=== PATIENT | female | born 1995 | race Hispanic/Latino ===

== ENCOUNTER 2018-06-10 13:10 | Emergency (ER) | payer OTHER | END 2018-06-10 13:47 | disposition home or self-care (01) | LOC: EDH 13:10 | DX: Z02.89 Encounter for other administrative examinations (principal) ==

== ENCOUNTER 2018-06-10 14:57 | Emergency (ER) | payer OTHER | END 2018-06-10 16:26 | disposition home or self-care (01) | LOC: EDH 14:57 | DX: O26.891 Other specified pregnancy related conditions, first trimester (principal); R10.2 Pelvic and perineal pain; Z32.01 Encounter for pregnancy test, result positive; Z3A.09 9 weeks gestation of pregnancy | CPT/HCPCS: 76801; 81025 ==

== ENCOUNTER 2019-01-30 13:07 | Emergency (ER) | payer MEDICAID | END 2019-01-30 15:03 | disposition home or self-care (01) | LOC: EDH 13:07 | DX: Z32.02 Encounter for pregnancy test, result negative (principal) | CPT/HCPCS: 36415; 84702 ==

== ENCOUNTER 2019-12-29 04:42 | Emergency (ER) | payer MEDICAID ==
[2019-12-29 05:13] LABS: APPEARANCE,URINE Clear (CLEAR); BILIRUBIN,URINE Negative (NEGATIVE); COLOR,URINE Yellow (YELLOW); GLUCOSE, URINE (UA) Negative (NEGATIVE); KETONES,URINE >=80 mg/dL (NEGATIVE); LEUKOCYTE ESTERASE ,URINE Trace (NEGATIVE); NITRATE,URINE Negative (NEGATIVE); OCCULT BLOOD,URINE Negative (NEGATIVE); PH,URINE 5.5 (5.0-8.0); PROTEIN,URINE Negative (NEGATIVE)
[2019-12-29 05:15] LABS: BASOPHILS % (AUTO) 0.6 % (0.0-5.0); EOSINOPHILS % (AUTO) 1.8 % (0.0-8.0); HEMATOCRIT 36.4 % (36-48); LYMPHOCYTES % (AUTO) 26.1 % (21.0-51.0); MEAN CORPUSCULAR HEMOGLOBIN 31.8 pg (27.0-33.0); MEAN CORPUSCULAR HGB CONC 33.8 g/dL (32.0-36.0); MEAN CORPUSCULAR VOLUME 94.1 fL (79-99); MONOCYTES % (AUTO) 7.5 % (3.0-13.0); NEUTROPHILS % (AUTO) 63.8 % (40.0-77.0); PLATELET COUNT (AUTO) 230 K/uL (130-400); RED BLOOD CELL COUNT(AUTO) 3.87 MIL/uL (4.00-5.50); RED CELL DISTRIBUTION WIDTH 13.4 % (11.0-15.5); WHITE BLOOD COUNT (AUTO) 9.1 K/uL (4.8-10.8)
[2019-12-29 05:19] LABS: AMPHET/METH SCREEN,URINE NEGATIVE (NEGATIVE); BARBITURATE SCREEN, URINE NEGATIVE (NEGATIVE); BENZODIAZEPINES SCREEN,URINE NEGATIVE (NEGATIVE); CANNABINOID SCREEN,URINE NEGATIVE (NEGATIVE); COCAINE SCREEN,URINE NEGATIVE (NEGATIVE); HCG,QUAL RESULT NEGATIVE (NEGATIVE); OPIATE SCREEN,URINE NEGATIVE (NEGATIVE); PHENCYCLIDINE SCREEN,URINE NEGATIVE (NEGATIVE)
[2019-12-29 05:24] LABS: BACTERIA,URINE None Seen /HPF (None Seen); MUCUS,URINE Few LPF (None Seen); RBC,URINE None Seen /HPF (0-1); SQUAMOUS EPITHELIAL CELL,UR Few /HPF (0-2)
[2019-12-29 05:32] LABS: ACETAMINOPHEN < 1 mcg/mL (10-30); SALICYLATE < 2.8 mg/dL (2.8-20.0)
[2019-12-29 05:33] LABS: ALBUMIN 4.1 g/dL (3.5-5.0); ALCOHOL, BLOOD < 3 mg/dL (0-10); BILIRUBIN,TOTAL 0.7 mg/dL (0.2-1.0); CREATININE 0.7 mg/dL (0.5-1.5); POTASSIUM 3.1 mmol/L (3.5-5.1); TOTAL PROTEIN, SERUM 7.5 g/dL (6.0-8.3)
== END 2019-12-29 09:15 | disposition home or self-care (01) ==
LOC: EDH 04:42
DX: F31.9 Bipolar disorder, unspecified (principal); F41.9 Anxiety disorder, unspecified; Z98.890 Other specified postprocedural states; Z72.0 Tobacco use
CPT/HCPCS: 36415; 80053; 80305; 81001; 81025; 85025; 99283; G0481

== ENCOUNTER 2022-08-31 03:00 | Emergency (ER) | payer MEDICAID ==
[~2022-08-31] VITALS: Ht 160 cm; Wt 77.1 kg
[2022-08-31 03:49] LABS: BASOPHILS % (AUTO) 0.3 % (0.0-5.0); EOSINOPHILS % (AUTO) 0.5 % (0.0-8.0); HEMATOCRIT 36.6 % (36-48); LYMPHOCYTES % (AUTO) 13.1 % (21.0-51.0); MEAN CORPUSCULAR HEMOGLOBIN 32.4 pg (27.0-33.0); MEAN CORPUSCULAR HGB CONC 34.4 g/dL (32.0-36.0); MEAN CORPUSCULAR VOLUME 94.1 fL (79-99); MONOCYTES % (AUTO) 4.9 % (3.0-13.0); NEUTROPHILS % (AUTO) 80.8 % (40.0-77.0); PLATELET COUNT (AUTO) 251 K/uL (130-400); RED BLOOD CELL COUNT(AUTO) 3.89 MIL/uL (4.00-5.50); RED CELL DISTRIBUTION WIDTH 14.1 % (11.0-15.5); WHITE BLOOD COUNT (AUTO) 10.6 K/uL (4.8-10.8)
[2022-08-31 04:00] LABS: APPEARANCE,URINE CLOUDY (CLEAR); BILIRUBIN,URINE NEGATIVE (NEGATIVE); COLOR,URINE YELLOW (YELLOW); GLUCOSE, URINE (UA) NEGATIVE (NEGATIVE); KETONES,URINE 5 mg/dL (NEGATIVE); LEUKOCYTE ESTERASE ,URINE 250 Leu/uL (NEGATIVE); NITRATE,URINE NEGATIVE (NEGATIVE); OCCULT BLOOD,URINE NEGATIVE (NEGATIVE); PH,URINE 6.5 (5.0-8.0); PROTEIN,URINE 10 mg/dL (NEGATIVE); UROBILINOGEN,URINE 0.2 mg/dL (0.2-1.0)
[2022-08-31 04:12] LABS: AMPHET/METH SCREEN,URINE NEGATIVE (NEGATIVE); BARBITURATE SCREEN, URINE NEGATIVE (NEGATIVE); BENZODIAZEPINES SCREEN,URINE NEGATIVE (NEGATIVE); CANNABINOID SCREEN,URINE NEGATIVE (NEGATIVE); COCAINE SCREEN,URINE NEGATIVE (NEGATIVE); OPIATE SCREEN,URINE NEGATIVE (NEGATIVE); PHENCYCLIDINE SCREEN,URINE NEGATIVE (NEGATIVE)
[2022-08-31 04:14] LABS: MUCUS,URINE MOD LPF (None Seen); SQUAMOUS EPITHELIAL CELL,UR FEW /HPF (0-2)
[2022-08-31 04:35] LABS: ALANINE AMINOTRANSFERASE 21 U/L (12-78); ALBUMIN 2.9 g/dL (3.5-5.0); ASPARTATE AMINOTRANSFERASE 18 U/L (10-37); CARBON DIOXIDE 29 mmol/L (21-32); CHLORIDE 102 mmol/L (101-111); CREATININE 0.4 mg/dL (0.5-1.5); GLOMERULAR FILTR. RATE CALC 140 mL/min (>90); GLUCOSE,RANDOM 102 mg/dL (70-105); HCG,QUANTITATIVE 30233 mIU/mL (0-5); SODIUM SERUM 137 mmol/L (136-145); TOTAL PROTEIN, SERUM 6.6 g/dL (6.0-8.3); UREA NITROGEN, BLOOD 3 mg/dL (7-18)
[2022-08-31 04:43] LABS: ACETAMINOPHEN < 1 mcg/mL (10-30); SALICYLATE < 2.8 mg/dL (2.8-20.0)
[2022-08-31 04:44] LABS: POTASSIUM 2.5 mmol/L (3.5-5.1)
[2022-08-31] MEDS ORDERED: POTASSIUM BICARB/CIT AC 25 MEQ TABLET.EFF PO ONE (05:00)
[2022-08-31 05:31] VITALS: BP 125/57
[2022-09-03] MEDS ORDERED: OMEP40CA21 PO (14:41)
[2022-09-03] MEDS ORDERED: VENL150T3 PO (14:41)
[2022-09-03] MEDS ORDERED: HYDR-3422 PO (14:41)
[2022-09-03] MEDS ORDERED: OMEG-148 PO (14:41)
== END 2022-08-31 05:48 | disposition home or self-care (01) ==
LOC: EDH 03:00
DX: O99.341 Other mental disorders complicating pregnancy, first trimester (principal); F31.9 Bipolar disorder, unspecified; I10 Essential (primary) hypertension; F20.9 Schizophrenia, unspecified; Z3A.09 9 weeks gestation of pregnancy
CPT/HCPCS: 99284; 76805; 80053; 80305; 84703; 84702; 85025; 87088; 36415; 81001; G0481

== ENCOUNTER 2024-10-01 18:31 | Emergency (ER) | payer MEDICAID ==
[~2024-10-01] VITALS: Ht 162.6 cm; Wt 79.4 kg
[~2024-10-01 18:31] MED LIST: OMEG-148 PO; OMEP40CA21 PO
[2024-10-01 18:34] VITALS: TEMP 98.6
--- NOTE | 2024-10-01 18:37 | ERN ---
ED Note History of Present Illness Stated Complaint: VOMITING Chief Complaint: Nausea,Vomiting,Diarrhea Time Seen by MD: 18:31 Dictation: PATIENT IS A 28-YEAR-OLD FEMALE COMING IN TODAY WITH COMPLAINTS OF RIGHT UPPER QUADRANT PAIN NAUSEA VOMITING AFTER INGESTING DRUGS TO INCLUDE SYNTHETIC MARIJUANA ALCOHOL. SHE STATES THE LAST INGESTION OF ANY CHEMICALS WAS THREE DAYS AGO WHEN A FRIEND SLEPT SOME IN HER CIGARETTE. Allergies: Coded Allergies: risperidone (Unverified Allergy, Severe, DIFFICULTY BREATHING, 09/04/22) No Known Allergies (Unverified Allergy, Unknown, 01/30/19) Home Meds Reported Medications Davy-3S/Dha/Epa/Fish Oil (Fish Oil 1,000 mg Softgel) 1 Each Capsule, 1 EACH PO AM, CAP 09/03/22 Omeprazole (Omeprazole) 40 Mg Capsule.dr, 40 MG PO AM, CAP 09/03/22 Past Medical History Past Medical History: Bipolar, Diabetes-Type II, Schizophrenia Surgical History: Unknown Family History: Negative Social History: Negative, Lives with family : 2 Para: 1 RN Note Reviewed/Agreed w/PFSH: Yes Review of System Dictation CONSTITUTIONAL: NEGATIVE EXCEPT FOR HPI HEAD/FACE: NEGATIVE EXCEPT FOR HPI EENT: NEGATIVE EXCEPT FOR HPI RESPIRATORY: NEGATIVE EXCEPT FOR HPI GASTROINTESTINAL/ABDOMINAL: NEGATIVE EXCEPT FOR HPI RIG PAIN WITH NAUSEA AND VOMITING GENITOURINARY: NEGATIVE EXCEPT FOR HPI MUSCULOSKELETAL: NEGATIVE EXCEPT FOR HPI INTEGUMENTARY: NEGATIVE EXCEPT FOR HPI NEUROLOGICAL/PSYCH: NEGATIVE EXCEPT FOR HPI HEMATOLOGIC/LYMPHATIC: NEGATIVE EXCEPT FOR HPI ALL SYSTEMS NEGATIVE, EXCEPT NOTED ABOVE. 13 POINT REVIEW OF SYSTEMS ASSESSED AND ALL NEGATIVE EXCEPT FOR ABOVE. Initial Vital Sign VS Vital Signs Date Time Temp Pulse Resp B/P (MAP) Pulse Ox O2 Delivery O2 Flow Rate FiO2 10/01/24 18:34 98.6 107 18 97/61 100 Room Air 0 10/01/24 19:17 21 Physical Exam Dictation VITAL SIGNS REVIEWED GENERAL APPEARANCE: ALERT, ORIENTED X 3, NO ACUTE DISTRESS, WELL DEVELOPED, NOURISHED. OBESE HEAD AND FACE: NON-TRAUMATIC. EYES: PERRL, PINK CONJUNCTIVAS, EYELID NO TRAUMA, ANTERIOR CHAMBER WITH ARCUS SENILIS. EARS: PINNAS INTACT AND NO SIGNS OF TRAUMA OR ERYTHEMA EAR CANALS CLEAR AND NO DISCHARGE TM NO ERYTHEMA NOSE: NO DISCHARGE, NO BLEEDING. OROPHARYNX: MOUTH NORMAL, TONGUE PINK, PHARYNX CLEAR,NO ERYTHEMA, TONSILS NO EXUDATES, NO ABSCESSES NOTED, MUCOUS MEMBRANE MOIST NECK: SUPPLE, NON-TENDER, NO THYROMEGALY, NO MASSES, NO JVD, NO BRUITS BREAST:DEFERRED CHEST:NO TENDERNESS, NO CREPITUS, NO PARADOXICAL MOVEMENT, NO RETRACTIONS LUNGS:CLEAR, WELL-VENTILATED, SYMMETRIC, NO RALES, NO WHEEZING, NO RHONCHI, NO STRIDOR, GOOD BREATH SOUNDS BILATERALLY HEART: REGULAR RATE, REGULAR RHYTHM, NO MURMUR, NO GALLOPS VASCULAR: NO PERIPHERAL EDEMA, ABDOMEN: SOFT, POSITIVE BOWEL SOUNDS, NONDISTENDED, NO GUARDING, RIGHT UPPER QUADRANT PAIN TENDERNESS., NO REBOUND, NO MASSES NO HEPATOMEGALY, NO SPLENOMEGALY, NO MAURER'S SIGN, NO HERNIAS. RECTAL: DEFERRED GENITAL: DEFERRED NEUROLOGICAL: NORMAL SPEECH, MOTOR FUNCTION INTACT, SENSORY FUNCTION INTACT MUSCULOSKELETAL: NECK NONTENDER, FULL RANGE OF MOTION, BACK NONTENDER, FULL RANGE OF MOTION, EXTREMITIES: NONTENDER, FULL RANGE OF MOTION SKIN: COLOR PINK, DRY, NO TURGOR, NO RASH, NO LACERATIONS, NO ABRASIONS, NO CONTUSIONS. LYMPHATIC: DEFERRED Results (Laboratory/Radiology) Laboratory/Radiology Laboratory Tests Test 10/01/24 19:05 10/01/24 19:36 10/01/24 20:39 White Blood Count 9.2 K/uL (4.8-10.8) Red Blood Count 3.72 MIL/uL (4.00-5.50) L Hemoglobin 11.5 g/dL (12.0-16.0) L Hematocrit 34.4 % (36-48) L Mean Corpuscular Volume 92.5 fL (79-99) Mean Corpuscular Hemoglobin 30.9 pg (27.0-33.0) Mean Corpuscular Hemoglobin Concent 33.4 g/dL (32.0-36.0) Red Cell Distribution Width 13.4 % (11.0-15.5) Platelet Count 224 K/uL (130-400) Mean Platelet Volume 10.8 fL (7.5-10.5) H Immature Granulocyte % (Auto) 0.3 % (0-1) Neutrophils (%) (Auto) 63.5 % (40.0-77.0) Lymphocytes (%) (Auto) 26.4 % (21.0-51.0) Monocytes (%) (Auto) 8.5 % (3.0-13.0) Eosinophils (%) (Auto) 0.8 % (0.0-8.0) Basophils (%) (Auto) 0.5 % (0.0-5.0) Neutrophils # (Auto) 5.8 K/uL (1.8-7.7) Lymphocytes # (Auto) 2.4 K/uL (1.0-4.8) Monocytes # (Auto) 0.8 K/uL (0.1-1.0) Eosinophils # (Auto) 0.07 K/uL (0.00-0.70) Basophils # (Auto) 0.05 K/uL (0.00-0.20) Absolute Immature Granulocyte (auto 0.03 K/uL (0-1) Nucleated Red Blood Cells 0.0 % (0.0-0.19) Sodium Level 137 mmol/L (136-145) Potassium Level 3.8 mmol/L (3.5-5.1) Chloride Level 101 mmol/L (101-111) Carbon Dioxide Level 27 mmol/L (21-32) Blood Urea Nitrogen 10 mg/dL (7-18) Creatinine 0.7 mg/dL (0.5-1.0) Glomerular Filtration Rate Calc 121 mL/min (>90) Random Glucose 96 mg/dL (70-105) Total Calcium 8.2 mg/dL (8.5-10.1) L Lipase 50 U/L (16-77) Urine Color COLORLESS (YELLOW) Urine Appearance CLEAR (CLEAR) Urine pH 5.5 (5.0-8.0) Urine Specific Leroy 1.004 (1.001-1.031) Urine Protein NEGATIVE mg/dL (NEGATIVE) Urine Glucose (UA) NEGATIVE mg/dL (NEGATIVE) Urine Ketones NEGATIVE mg/dL (NEGATIVE) Urine Occult Blood NEGATIVE (NEGATIVE) Urine Nitrate NEGATIVE (NEGATIVE) Urine Bilirubin NEGATIVE mg/dL (NEGATIVE) Urine Urobilinogen 0.2 mg/dL (0.2-1.0) Urine Leukocyte Esterase NEGATIVE Sharmin/uL Urine HCG, Qualitative POSITIVE (NEGATIVE) H Urine Opiates Screen NEGATIVE (NEGATIVE) Urine Barbiturates Screen NEGATIVE (NEGATIVE) Urine Phencyclidine Screen NEGATIVE (NEGATIVE) Urine Amphetamines Screen NEGATIVE (NEGATIVE) Urine Benzodiazepines Screen NEGATIVE (NEGATIVE) Urine Cocaine Screen NEGATIVE (NEGATIVE) Urine Marijuana (THC) Screen NEGATIVE (NEGATIVE) Human Chorionic Gonadotropin, Quant 5477 mIU/mL (0-5) H LTRASOUND ABDOMEN LIMITED INDICATION: Right upper abdominal pain COMPARISON: None FINDINGS: The liver is normal in size and slightly increased in echogenicity; no focal lesion demonstrated. The common bile duct diameter measures 4.0 mm. No evidence for calculi, sludge or pericholecystic fluid. No sonographic Maurer's sign elicited by the ultrasound bituminous distributor operator. Wall thickness measures 2.0 mm. Visible portions of the pancreas appear normal. The right kidney measures 9.1 x 3.4 x 4.0 cm,and is normal in echogenicity, without evidence for hydronephrosis.No shadowing stones demonstrated. No free fluid demonstrated. IMPRESSION: Findings suggesting mild hepatic steatosis. LTRASOUND OB LESS THAN 14 WEEKS ULTRASOUND ABD VASCULAR LIMITED INDICATION: Pelvic pain COMPARISONS: None TECHNIQUE: Transabdominal real-time sonographic images were acquired earlier, and subsequently made available for review. FINDINGS: The uterus measures 8.1 x 5.8 x 4.0 cm. The uterus is normal in echotexture and contour. Single intrauterine gestational sac measuring 0.84 cm without pole or yolk sac. The right ovary measures 2.5 x 2.2 x 3.0 cm. The right ovary is normal in size, shape and echogenicity. No right adnexal masses demonstrated. Color Doppler flow is normal throughout the right ovary. Spectral Doppler analysis demonstrates a normal waveform pattern. The left ovary measures 2.6 x 1.9 x 2.9 cm. The left ovary is normal in size, shape and echogenicity. No left adnexal masses demonstrated. Color Doppler flow is normal throughout the left ovary. Spectral Doppler analysis demonstrates a normal waveform pattern. No free pelvic fluid demonstrated. IMPRESSION: Findings suggesting early intrauterine gestation for which continued surveillance of beta-hCG levels and short-term follow-up sonographic imaging is recommende Labs Reviewed?: Yes ED Course ED Course Orders Procedure Category Date Status Time Drug Screen Urine LAB 10/01/24 Complete 18:32 Cbc With Differential LAB 10/01/24 Complete 18:32 ,Urine Test LAB 10/01/24 Complete 18:32 Urinalysis Profile LAB 10/01/24 Complete 18:32 Us Abdominal Ruq\Ltd US 10/01/24 Resulted 18:32 0.9%Nacl 1000ml (Ns PHA 10/01/24 Complete 1000ml) 19:00 Ondansetron 4mg Inj PHA 10/01/24 Complete (Zofran 4mg Inj) 19:00 Lipase LAB 10/01/24 Complete 18:32 Basic Metabolic Panel LAB 10/01/24 Complete 18:32 Hcg,Quantitative LAB 10/01/24 Complete 20:10 Us Ob <14 Weeks US 10/01/24 Resulted 20:10 Type And Screen BBK 10/01/24 Complete 20:10 Current Medications Medications (Trade) Dose Ordered Sig/Isiah Route PRN Reason Start Time Stop Time Status Last Admin Dose Admin Ondansetron HCl (zoFRAN 4MG INJ) 4 mg ONCE ONCE IVP 10/01/24 19:00 10/01/24 19:01 DC 10/01/24 19:39 Sodium Chloride 1,000 ml @ 0 mls/hr ONCE ONCE IV 10/01/24 19:00 10/01/24 19:01 DC 10/01/24 19:39 Vital Signs Date Time Temp Pulse Resp B/P (MAP) Pulse Ox O2 Delivery O2 Flow Rate FiO2 10/01/24 19:17 107 18 99/66 100 Room Air* 0 21 10/01/24 18:34 98.6 107 18 97/61 100 Room Air 0 2009/SPOKE WITH PATIENT AND MADE HER AWARE I HAVE A POSITIVE HCG TEST. HE STATES I THOUGHT I MIGHT BE . SHE DENIES ANY VAGINAL BLEEDING CONTRACTIONS OR PELVIC PAIN OR FLANK PAIN. WE WILL FOLLOW UP WITH TYPE AND SCREEN, SERUM HCG QUANTITATIVE AND OB ULTRASOUND. 2124/WITH PATIENT AT LENGTH AND SHE IS AWARE THAT SHE HAS BEEN BETWEEN THREE AND FOUR WEEKS . [place]99 WE WILL BE DISCHARGED HOME WITH THE INSTRUCTIONS START VITAMINS/[id number]-[id number] IMMEDIATELY. IN ADDITION SHE WAS INFORMED TO STOP DRINKING, STOP ANY DRUG USE OTHER THAN TYLENOL [id number] AND FOLLOW UP WITH HER COLOR DIPPER DOCTOR IN THE NEXT FEW DAYS. SHE STATES HER LAST COLOR DIPPER WAS DR. MELI NATHAN AND SHE WILL GO TO HIM NEXT WEEK. Medical Decision Making MDM MDM: DIFFERENTIAL DIAGNOSIS: CHOLELITHIASIS/CHOLEDOCHOLITHIASIS//UTI/ELECTROLYTE IMBALANCE/DEHYDRATION/GASTROENTERITIS/PANCREATITIS RATIONALE: TESTS CONSIDERED AND ORDERED SECONDARY TO SHARED DECISION MAKING INCLUDE: LABS/RADIOLOGY PREVIOUS OUTSIDE RECORDS REVIEWED: OLD ER VISITS. RISK OF COMPLICATION AND/OR MORBIDITY OR MORTALITY OF PATIENT MANAGEMENT: MINIMAL MEDICATIONS-PER MEDICATION RECONCILIATION NEED FOR HOSPITALIZATION: PATIENT DOES NOT MEET CRITERIA FOR HOSPITALIZATION. NO NEED FOR EMERGENCY MAJOR/MINOR SURGERY: NO THERE ARE NO SOCIAL CONCERNS WITH THIS PATIENT. PATIENT IS A DRINKER, TOBACCO ABUSER AND OCCASIONALLY DESPITE SHE IS APPROXIMATE 3-4 WEEKS PRESCRIPTION DRUG MANAGEMENT ZOFRAN ODT PRESCRIPTIONS WILL INCLUDE SYMPTOMATIC CARE PATIENT'S PRIOR EXTERNAL MEDICAL RECORDS FROM OTHER ER VISITS WERE REVIEWED BY ME INDICATED. PRIOR TESTING AND RESULTS FROM PREVIOUS VISITS WERE REVIEWED. PRIOR TESTS WERE TAKEN INTO ACCOUNT WITH MEDICAL DECISION MAKING AND RESOURCE UTILIZATION, INDEPENDENT HISTORIAN/HISTORIANS WERE USED TO OBTAIN COMPLETE MEDICAL HISTORY. I INDEPENDENTLY INTERPRETED THE TEST THAT WERE PERFORMED, RESULTS WERE REVIEWED BY ME AND CONSIDERED FINDINGS ON RADIOLOGY IF ORDERED. MEDICAL MANAGEMENT AND EXAMINATION INTERPRETATION DISCUSSIONS WERE HAD BY ME WITH OTHER QUALIFIED HEALTHCARE PROFESSIONALS INDICATED FOR THE PATIENT'S CARE. DX & DISP Disposition: Discharge Departure Impression: Primary Impression: Hyperemesis gravidarum Additional Impressions: Hypocalcemia, Chronic anemia Condition: Stable Scripts Ondansetron (Ondansetron Odt) 4 Mg Tab.rapdis 4 MG PO Q6HPRN PRN for nausea, #16 TAB 0 Refills Prov: GILDA KAUR [employer] MAINFRAME DEVELOPER 10/01/24 Additional Instructions: FOLLOW-UP WITH PRIMARY CARE PROVIDER IN 1 TO 2 DAYS. TAKE MEDICATIONS DIRECTED HERE IN THE EMERGENCY ROOM. OKAY TO CONTINUE HOME MEDICATIONS UNLESS OTHERWISE DISCUSSED DURING YOUR VISIT IN THE EMERGENCY ROOM TODAY. RETURN TO YOUR NEAREST EMERGENCY ROOM IF SYMPTOMS WORSEN OR IF THERE IS NO IMPROVEMENT. CALL 911 IF YOU NEED IMMEDIATE ASSISTANCE. TAKE TYLENOL [id number] NEEDED AND IF NO CONTRAINDICATIONS ARE PRESENT. INCREASE ORAL HYDRATION. A WOUND CULTURE OR URINE CULTURE WAS ORDERED HERE IN THE EMERGENCY ROOM DEPARTMENT PLEASE FOLLOW-UP WITH PRIMARY CARE PROVIDER AND ADVISE THEM TO GET REPEAT PORTS FROM OUR FACILITY. IF YOU HAD ANY KIMBERLY WRAP/SPLINTS THAT WERE APPLIED HERE, PLEASE DO NOT REMOVE THEM UNTIL YOU SEE YOUR PRIMARY CARE OR SPECIALTY. BEGIN VITAMINS/DRHY-TSV-HSULENB WITH FOOD DAILY. TYLENOL ONLY FOR PAIN , NO CTIR-DAZ-UJIOEZP MEDICATIONS NO TOBACCO ABUSE NO DRUG ABUSE OF ANY KIND NO ALCOHOL OF ANY KIND UNTIL CLEARED BY YOUR COLOR DIPPER DOCTOR NEXT WEEK. DISCHARGE INSTRUCT BEGIN Referrals: NONE (PCP) Time of Disposition: 21:27 I have reviewed the case, and I agree with, Diagnosis and Plan GILDA KAUR NP October 01, 2024 18:37
--- NOTE | 2024-10-01 19:07 | HMCIMG ---
ULTRASOUND ABDOMEN LIMITED INDICATION: Right upper abdominal pain COMPARISON: None FINDINGS: The liver is normal in size and slightly increased in echogenicity; no focal lesion demonstrated. The common bile duct diameter measures 4.0 mm. No evidence for calculi, sludge or pericholecystic fluid. No sonographic Maurer's sign elicited by the ultrasound rotary veneer machine operator. Wall thickness measures 2.0 mm. Visible portions of the pancreas appear normal. The right kidney measures 9.1 x 3.4 x 4.0 cm,and is normal in echogenicity, without evidence for hydronephrosis.No shadowing stones demonstrated. No free fluid demonstrated. IMPRESSION: Findings suggesting mild hepatic steatosis.
[2024-10-01 19:18] LABS: BASOPHILS # (AUTO) 0.05 K/uL (0.00-0.20); BASOPHILS % (AUTO) 0.5 % (0.0-5.0); EOSINOPHILS # (AUTO) 0.07 K/uL (0.00-0.70); EOSINOPHILS % (AUTO) 0.8 % (0.0-8.0); HEMATOCRIT 34.4 % (36-48); IMMATURE GRANULOCYTE ABSOLUTE 0.03 K/uL (0-1); LYMPHOCYTES # (AUTO) 2.4 K/uL (1.0-4.8); LYMPHOCYTES % (AUTO) 26.4 % (21.0-51.0); MEAN CORPUSCULAR HEMOGLOBIN 30.9 pg (27.0-33.0); MEAN CORPUSCULAR HGB CONC 33.4 g/dL (32.0-36.0); MEAN CORPUSCULAR VOLUME 92.5 fL (79-99); MONOCYTES # (AUTO) 0.8 K/uL (0.1-1.0); MONOCYTES % (AUTO) 8.5 % (3.0-13.0); NEUTROPHILS # (AUTO) 5.8 K/uL (1.8-7.7); NEUTROPHILS % (AUTO) 63.5 % (40.0-77.0); PLATELET COUNT (AUTO) 224 K/uL (130-400); RED BLOOD CELL COUNT(AUTO) 3.72 MIL/uL (4.00-5.50); RED CELL DISTRIBUTION WIDTH 13.4 % (11.0-15.5); WHITE BLOOD COUNT (AUTO) 9.2 K/uL (4.8-10.8)
[2024-10-01 19:23] LABS: CREATININE 0.7 mg/dL (0.5-1.0); POTASSIUM 3.8 mmol/L (3.5-5.1)
[2024-10-01] MEDS: 0.9%NACL 1000ML 1,000 ML IV ONE (19:39)
[2024-10-01] MEDS: ondanSETRON 4MG INJ IVP ONE (19:39)
[2024-10-01 19:45] LABS: APPEARANCE,URINE CLEAR (CLEAR); BILIRUBIN,URINE NEGATIVE (NEGATIVE); COLOR,URINE COLORLESS (YELLOW); GLUCOSE, URINE (UA) NEGATIVE (NEGATIVE); KETONES,URINE NEGATIVE (NEGATIVE); LEUKOCYTE ESTERASE ,URINE NEGATIVE Leu/uL (NEGATIVE); NITRATE,URINE NEGATIVE (NEGATIVE); OCCULT BLOOD,URINE NEGATIVE (NEGATIVE); PH,URINE 5.5 (5.0-8.0); PROTEIN,URINE NEGATIVE (NEGATIVE); UROBILINOGEN,URINE 0.2 mg/dL (0.2-1.0)
[2024-10-01 19:46] LABS: HCG,QUALITATIVE URINE POSITIVE (NEGATIVE)
[2024-10-01 19:47] LABS: ADD UA MICROSCOPIC NO
[2024-10-01 19:52] LABS: AMPHET/METH SCREEN,URINE NEGATIVE (NEGATIVE); BARBITURATE SCREEN, URINE NEGATIVE (NEGATIVE); BENZODIAZEPINES SCREEN,URINE NEGATIVE (NEGATIVE); CANNABINOID SCREEN,URINE NEGATIVE (NEGATIVE); COCAINE SCREEN,URINE NEGATIVE (NEGATIVE); OPIATE SCREEN,URINE NEGATIVE (NEGATIVE); PHENCYCLIDINE SCREEN,URINE NEGATIVE (NEGATIVE)
--- NOTE | 2024-10-01 20:47 | HMCIMG ---
ULTRASOUND OB LESS THAN 14 WEEKS ULTRASOUND ABD VASCULAR LIMITED INDICATION: Pelvic pain COMPARISONS: None TECHNIQUE: Transabdominal real-time sonographic images were acquired earlier, and subsequently made available for review. FINDINGS: The uterus measures 8.1 x 5.8 x 4.0 cm. The uterus is normal in echotexture and contour. Single intrauterine gestational sac measuring 0.84 cm without pole or yolk sac. The right ovary measures 2.5 x 2.2 x 3.0 cm. The right ovary is normal in size, shape and echogenicity. No right adnexal masses demonstrated. Color Doppler flow is normal throughout the right ovary. Spectral Doppler analysis demonstrates a normal waveform pattern. The left ovary measures 2.6 x 1.9 x 2.9 cm. The left ovary is normal in size, shape and echogenicity. No left adnexal masses demonstrated. Color Doppler flow is normal throughout the left ovary. Spectral Doppler analysis demonstrates a normal waveform pattern. No free pelvic fluid demonstrated. IMPRESSION: Findings suggesting early intrauterine gestation for which continued surveillance of beta-hCG levels and short-term follow-up sonographic imaging is recommended.
[2024-10-01] MEDS ORDERED: ONDA-243 PO (21:28)
[2024-10-01 21:32] VITALS: BP 111/67; PULSE 94; RESP 18; O2SAT 100
== END 2024-10-01 21:48 | disposition home or self-care (01) ==
LOC: EDH 18:31
DX: O21.0 Mild hyperemesis gravidarum (principal); O26.891 Other specified pregnancy related conditions, first trimester; E83.51 Hypocalcemia; D64.9 Anemia, unspecified; R10.2 Pelvic and perineal pain; O24.119 Pre-existing type 2 diabetes mellitus, in pregnancy, unspecified trimester; F20.9 Schizophrenia, unspecified; Z3A.01 Less than 8 weeks gestation of pregnancy; Z79.899 Other long term (current) drug therapy; Z88.8 Allergy status to other drugs, medicaments and biological substances
CPT/HCPCS: 99285; 96374; 76705; 76801; 96361; 80048; 80305; 84702; 83690; 85025; 86850; 86900; 86901; 81025; 36415; 81003; J7030; J2405

== ENCOUNTER → 2024-12-24 | Emergency (ER) | payer MEDICAID ==
[~2024-12-24] VITALS: Ht 157.5 cm; Wt 68.0 kg
[~2024-12-24] MED LIST changes: +ONDA-243 PO
[2024-12-24 06:58] VITALS: TEMP 97.8
[2024-12-24 07:15] VITALS: BP 161/76; PULSE 92; RESP 18; O2SAT 97
--- NOTE | 2024-12-24 07:22 | NUR ---
PT STATES SHE WAS IN PAIN AND TOLD THE SWIMMING TEACHER TO COME BACK LATER. PT THEN BEGAN TO RAISE HER VOICE AND STATE PROFANITY TOWARDS NURSE SHIMA BOWLING. ELI BIANCHI AT BEDSIDE.
[2024-12-24 07:33] LABS: IMMATURE GRANULOCYTE ABSOLUTE 0.04 K/uL (0-1); NUCLEATED RED BLOOD CELLS 0.0 % (0.0-0.19); PLATELET COUNT (AUTO) 309 K/uL (130-400); RED BLOOD CELL COUNT(AUTO) 3.95 MIL/uL (4.00-5.50); RED CELL DISTRIBUTION WIDTH 12.6 % (11.0-15.5); WHITE BLOOD COUNT (AUTO) 11.2 K/uL (4.8-10.8)
[2024-12-24 07:35] LABS: ADD UA MICROSCOPIC YES; APPEARANCE,URINE CLOUDY (CLEAR); GLUCOSE, URINE (UA) NEGATIVE (NEGATIVE); LEUKOCYTE ESTERASE ,URINE NEGATIVE Leu/uL (NEGATIVE); NITRATE,URINE NEGATIVE (NEGATIVE); OCCULT BLOOD,URINE NEGATIVE (NEGATIVE)
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
[2024-12-24 07:40] LABS: SQUAMOUS EPITHELIAL CELL,UR MOD /HPF (0-2)
[2024-12-24 07:42] LABS: AMPHET/METH SCREEN,URINE NEGATIVE (NEGATIVE); BARBITURATE SCREEN, URINE NEGATIVE (NEGATIVE); CANNABINOID SCREEN,URINE NEGATIVE (NEGATIVE); COCAINE SCREEN,URINE NEGATIVE (NEGATIVE)
--- NOTE | 2024-12-24 07:44 | NUR ---
[facility] WAS CALLED
--- NOTE | 2024-12-24 07:49 | NUR ---
[facility] AT BEDSIDE
--- NOTE | 2024-12-24 08:00 | NUR ---
PT STATED SHE WANTED TO LEAVE TO [facility] [place]. WENT WITH OFFICER KEYONA FROM [facility] TO BE TRANSPORTED TO [facility] [place]. INCIDENT NUMBER: [id number]
[2024-12-24 08:07] LABS: ALCOHOL, BLOOD < 3 mg/dL (0-10); CREATININE 0.4 mg/dL (0.5-1.0); GLOMERULAR FILTR. RATE CALC 137 mL/min (>90); GLUCOSE,RANDOM 91 mg/dL (70-105); SODIUM SERUM 138 mmol/L (136-145); UREA NITROGEN, BLOOD 6 mg/dL (7-18)
== END ==
LOC: EDH 06:51
DX: Z04.6 Encounter for general psychiatric examination, requested by authority (principal); Z53.21 Procedure and treatment not carried out due to patient leaving prior to being seen by health care provider
CPT/HCPCS: 80305; 36415; 80048; 85025; 84703; 81001; G0481